=== PATIENT | male | born 1965 | race Caucasian/White ===

== ENCOUNTER 2020-01-07 18:17 | Observation (INO) ==
[2020-01-07] MEDS ORDERED: 0.9 % Sodium Chloride 500 ML IVC ONE (18:26)
[2020-01-07 18:38] LABS: Basophils # 0.1 K/mcL (0.0-0.2); Basophils % 0.6 %; Eosinophils % 0.2 %; Hematocrit 43.4 % (37.5-50.1); Hemoglobin 14.5 g/dL (12.9-16.9); Immature Granulocytes % 0.2 % (0-4); Lymphocytes # 1.4 K/mcL (0.6-4.6); Lymphocytes % 11.3 %; Mean Corpuscular HGB Conc 33.4 g/dL (31.6-35.5); Mean Corpuscular Hemoglobin 28.5 pg (28.0-33.3); Mean Corpuscular Volume 85.3 fL (83.0-100.0); Mean Platelet Volume 10.7 fL (9.4-12.4); Monocytes # 1.3 K/mcL (0.0-1.3); Monocytes % 10.1 %; Neutrophils # 9.7 K/mcL (1.6-8.9); Platelet Count 291 K/mcL (140-400); Red Blood Count 5.09 M/mcL (4.19-5.50); Red Cell Distribution Width 13.4 % (11.5-14.5); Segmented Neutrophils % 77.6 %; White Blood Count 12.5 K/mcL (4.3-11.1)
[2020-01-07 18:45] LABS: INR 1.4; Prothrombin Time 15.5 Seconds (9.4-12.1)
[2020-01-07 18:48] LABS: Activated Partial Thrombo Time 30.1 Seconds (26.0-36.0)
[2020-01-07 19:02] LABS: BUN/Creatinine Ratio 18 (6-26); Blood Urea Nitrogen 16 mg/dL (6-20); Calcium 9.4 mg/dL (8.6-10.3); Carbon Dioxide 23 mEq/L (23-29); Chloride 100 mEq/L (98-107); Glucose 108 mg/dL (70-105); Osmolality,Calculated 286 (280-300); Potassium 3.9 mEq/L (3.5-5.1); Sodium 137 mEq/L (136-145); eGFR For African Americans > 60 (> 60); eGFR For Non-African Americans > 60 (> 60)
[2020-01-07 19:03] LABS: Troponin I 0.03 ng/mL (< 0.04)
[2020-01-07] MEDS ORDERED: *HR* Heparin 5,000 UNIT/ML VIAL IVP PRN ×2 (19:09)
[2020-01-07] MEDS ORDERED: *HR* Heparin 5,000 UNIT/ML VIAL IVP ONE (19:09)
[2020-01-07] MEDS ORDERED: Heparin 25,000 UNIT/250 ML D5W 25,000 UNIT/250 ML IV.SOLN IVC SCH (19:15)
[2020-01-07] MEDS: DilTIAZem 50 MG in 0.9 % Sodium Chloride 40 ML IVC SCH (19:17)
[2020-01-07 19:37] LABS: Heparin anti-factor XA UFH < 0.04 IU/mL (0.30-0.70)
[2020-01-07 19:38] LABS: Thyroid Stimulating Hormone 3.221 mcIU/mL (0.340-5.600)
[2020-01-07] MEDS ORDERED: *HR* LORazepam 2 MG/ML VIAL IVP PRN ×3 (19:54)
[2020-01-07] MEDS ORDERED: Naloxone 0.4 MG/ML INJ IVP PRN (19:55)
[2020-01-07] MEDS ORDERED: Ondansetron 4 MG/2 ML VIAL IVP PRN (19:55)
[2020-01-08 01:29] LABS: Basophils # 0.1 K/mcL (0.0-0.2); Basophils % 0.9 %; Eosinophils # 0.1 K/mcL (0.0-0.6); Eosinophils % 0.5 %; Hematocrit 41.3 % (37.5-50.1); Hemoglobin 13.6 g/dL (12.9-16.9); Immature Granulocytes % 0.5 % (0-4); Lymphocytes # 1.8 K/mcL (0.6-4.6); Lymphocytes % 15.2 %; Mean Corpuscular HGB Conc 32.9 g/dL (31.6-35.5); Mean Corpuscular Hemoglobin 28.2 pg (28.0-33.3); Mean Corpuscular Volume 85.5 fL (83.0-100.0); Mean Platelet Volume 11.2 fL (9.4-12.4); Monocytes # 1.3 K/mcL (0.0-1.3); Monocytes % 11.3 %; Neutrophils # 8.3 K/mcL (1.6-8.9); Platelet Count 255 K/mcL (140-400); Red Blood Count 4.83 M/mcL (4.19-5.50); Red Cell Distribution Width 13.5 % (11.5-14.5); Segmented Neutrophils % 71.6 %; White Blood Count 11.5 K/mcL (4.3-11.1)
[2020-01-08 01:48] LABS: Alanine Aminotransferase 40 Units/L (7-52); Albumin 3.8 g/dL (3.5-5.7); Albumin/Globulin Ratio 1.7 (1.1-2.2); Alkaline Phosphatase 54 Units/L (34-104); Aspartate Amino Transferase 27 Units/L (13-39); BUN/Creatinine Ratio 16 (6-26); Bilirubin,Total 0.6 mg/dL (0.3-1.0); Blood Urea Nitrogen 16 mg/dL (6-20); Calcium 8.8 mg/dL (8.6-10.3); Carbon Dioxide 24 mEq/L (23-29); Chloride 104 mEq/L (98-107); Globulin 2.2 g/dL (2.4-3.5); Glucose 109 mg/dL (70-105); Osmolality,Calculated 284 (280-300); Potassium 3.7 mEq/L (3.5-5.1); Sodium 136 mEq/L (136-145); eGFR For African Americans > 60 (> 60); eGFR For Non-African Americans > 60 (> 60)
[2020-01-08] MEDS: DilTIAZem 50 MG in 0.9 % Sodium Chloride 40 ML IVC SCH ×2 (02:00→06:28)
[2020-01-08 02:18] LABS: Estimated Average Glucose 126 mg/dl
[2020-01-08] MEDS: DilTIAZem CD (24hr) 240 MG CAP.ER.24H PO SCH (07:35)
[2020-01-08] MEDS: Apixaban 5 MG TABLET PO SCH ×2 (09:09→20:50)
[2020-01-08] MEDS ORDERED: *HR* Metoprolol 5 MG/5 ML VIAL IVP ONE (11:28)
[2020-01-08] MEDS ORDERED: Isovue-370 500 ML BOTTLE IVP ONE ×3 (12:17→12:20)
[2020-01-08] MEDS ORDERED: GuaiFENesin Liq 200 MG/10 ML UDC PO PRN (12:20)
[2020-01-08] MEDS ORDERED: Benzonatate 100 MG CAPSULE PO PRN (12:20)
[2020-01-08] MEDS: MethylPREDNISolone 40 MG/ML VIAL IVP SCH ×2 (12:41→17:32)
[2020-01-08] MEDS ORDERED: Isovue-370 500 ML BOTTLE PO ONE (15:14)
[2020-01-08] MEDS: Budesonide/Formoterol 160/4.5 1 PUFF INH IH SCH ×2 (15:59→19:56)
[2020-01-08] MEDS: Ipratropium/Albuterol Neb 3 ML IH SCH ×4 (16:00→23:37)
[2020-01-08] MEDS ORDERED: Azithromycin 500 MG in 0.9 % Sodium Chloride 250 ML IVPB SCH (17:00)
[2020-01-08 17:14] LABS: Albumin 4.1 g/dL (3.5-5.7); Albumin/Globulin Ratio 1.6 (1.1-2.2); Bilirubin,Direct 0.2 mg/dL (0.0-0.2); Bilirubin,Indirect 0.5 mg/dL (0.0-1.0); Bilirubin,Total 0.7 mg/dL (0.3-1.0); Globulin 2.5 g/dL (2.4-3.5); Total Protein 6.6 g/dL (6.4-8.9)
[2020-01-08] MEDS ORDERED: 0.9 % Sodium Chloride 250 ML ONE (17:30)
[2020-01-08] MEDS: Furosemide 40 MG/4 ML VIAL IVP SCH ×2 (17:33→23:40)
[2020-01-08] MEDS ORDERED: Thiamine (B-1) 100 MG, Folic Acid 1 MG, MVI, adult with vitamin K 10 ML in 0.9 % Sodi... IVPB SCH (18:00)
[2020-01-08 22:37] LABS: Bilirubin,Urine Negative (Negative); Blood,Urine Negative (Negative); Color,Urine Yellow (Yellow); Glucose,Urine (UA) Normal (Normal); Ketones,Urine Negative (Negative); Leukocyte Esterase,Urine Negative (Negative); Nitrite,Urine Negative (Negative); Protein,Urine Negative (Neg-Trace); Specific Gravity,Urine 1.019 (1.010-1.025); Urobilinogen,Urine Normal (Normal)
[2020-01-08 22:39] LABS: Bacteria,Urine None Seen per hpf (None-Few); Hyaline Casts,Urine None Seen per lpf (None-Few); RBC,Urine 0-3 per hpf (0-3); Squamous Epithelial Cell,Urine None Seen per lpf (None-Few); WBC,Urine 0-3 per hpf (0-3)
[2020-01-08 22:41] LABS: Clarity,Urine Cloudy (Clear)
[2020-01-08 22:57] LABS: Adenovirus Not Detected (Not Detect); Bordetella Pertussis Not Detected (Not Detect); Chlamydophila pneumoniae Not Detected (Not Detect); Coronavirus 229E Not Detected (Not Detect); Coronavirus HKU1 Not Detected (Not Detect); Coronavirus NL63 Not Detected (Not Detect); Coronavirus OC43 Not Detected (Not Detect); Human Metapneumovirus Not Detected (Not Detect); Human Rhinovirus/Enterovirus Not Detected (Not Detect); Influenza A Subtype 2009 H1 Not Detected (Not Detect); Influenza B Not Detected (Not Detect); Mycoplasma pneumoniae Not Detected (Not Detect); Parainfluenza Virus 1 Not Detected (Not Detect); Parainfluenza Virus 2 Not Detected (Not Detect); Parainfluenza Virus 3 Not Detected (Not Detect); Parainfluenza Virus 4 Not Detected (Not Detect); Respiratory Syncytial Virus Not Detected (Not Detect)
[2020-01-09] MEDS: MethylPREDNISolone 40 MG/ML VIAL IVP SCH ×2 (00:48→07:40)
[2020-01-09 01:31] LABS: Basophils % 0.1 %; Hemoglobin 13.5 g/dL (12.9-16.9); Immature Granulocytes % 0.6 % (0-4); Lymphocytes # 0.5 K/mcL (0.6-4.6); Lymphocytes % 3.7 %; Mean Corpuscular HGB Conc 32.1 g/dL (31.6-35.5); Mean Corpuscular Hemoglobin 28.8 pg (28.0-33.3); Mean Corpuscular Volume 89.6 fL (83.0-100.0); Mean Platelet Volume 11.7 fL (9.4-12.4); Monocytes # 0.3 K/mcL (0.0-1.3); Monocytes % 2.3 %; Neutrophils # 11.6 K/mcL (1.6-8.9); Platelet Count 255 K/mcL (140-400); Red Blood Count 4.69 M/mcL (4.19-5.50); Red Cell Distribution Width 13.5 % (11.5-14.5); Segmented Neutrophils % 93.3 %; White Blood Count 12.5 K/mcL (4.3-11.1)
[2020-01-09 01:48] LABS: Albumin 4.1 g/dL (3.5-5.7); Albumin/Globulin Ratio 1.8 (1.1-2.2); BUN/Creatinine Ratio 21 (6-26); Bilirubin,Direct 0.2 mg/dL (0.0-0.2); Bilirubin,Indirect 0.4 mg/dL (0.0-1.0); Bilirubin,Total 0.6 mg/dL (0.3-1.0); Blood Urea Nitrogen 20 mg/dL (6-20); Carbon Dioxide 28 mEq/L (23-29); Chloride 99 mEq/L (98-107); Globulin 2.3 g/dL (2.4-3.5); Glucose 143 mg/dL (70-105); Osmolality,Calculated 287 (280-300); Phosphorous 3.5 mg/dL (2.7-4.5); Sodium 136 mEq/L (136-145); Total Protein 6.4 g/dL (6.4-8.9); eGFR For African Americans > 60 (> 60); eGFR For Non-African Americans > 60 (> 60)
[2020-01-09] MEDS: Ipratropium/Albuterol Neb 3 ML IH SCH ×4 (03:02→15:36)
[2020-01-09] MEDS: DilTIAZem CD (24hr) 240 MG CAP.ER.24H PO SCH (07:40)
[2020-01-09] MEDS: Furosemide 40 MG/4 ML VIAL IVP SCH (07:40)
[2020-01-09] MEDS: Apixaban 5 MG TABLET PO SCH (07:40)
[2020-01-09] MEDS: Budesonide/Formoterol 160/4.5 1 PUFF INH IH SCH (07:45)
[2020-01-09 11:25] VITALS: BP 124/73
== END 2020-01-09 13:24 | disposition home or self-care (01) ==
LOC: EMEROOARM 18:17 → 2ANU 18:17
PROVIDERS: ADMIT Student in an Organized Health Care Education/Training Program; ATTEND Student in an Organized Health Care Education/Training Program